=== PATIENT | female | born 1950 | race Caucasian/White ===

== ENCOUNTER → 2020-12-02 09:35 | Outpatient (CLI) | payer MEDICARE, SELFPAY ==
--- NOTE | 2020-12-02 09:40 | US_ITS ---
PROCEDURE: US FNA THYROID CLINICAL INDICATION: RT THRYOID NODULE COMPARISON: US US THYROID from 11/12/2020, [facility] TECHNIQUE: Following obtaining informed consent, using aseptic technique and local anesthesia with buffered lidocaine, fine-needle aspiration was performed of the nodule of interest using sonographic guidance. 3 passes were made into the nodule with a 21 gauge needle. Approximately 5 cc of greenish fluid was aspirated. Once the nodule was aspirated and FNA was performed of the solid component labeled as 2. Specimen was given to cytology. The patient tolerated the procedure well without evidence of immediate complications and left the ultrasound suite in stable condition. FINDINGS: Pre biopsy images show a dominant mostly cystic nodule in the lower pole on the right. This was targeted for biopsy. CYTOLOGY: The FNA of the more solid component of the nodule demonstrates a benign follicular nodule IMPRESSION: Uneventful ultrasound-guided FNA of the thyroid cystic nodule demonstrating benign follicular nodule. Dictated by: Vik Poole MD 12/13/2020 15:56 Vik Poole MD in [place] 12/13/2020 15:56
== END ==
PROVIDERS: PCP Family Medicine; Visit Provider Otolaryngology
DX: D34 Benign neoplasm of thyroid gland (principal)
CPT/HCPCS: 10005; 88173; 88305